=== PATIENT | female | born 1955 | race Hispanic/Latino ===

== ENCOUNTER 2020-12-15 06:16 | Day surgery (SDC) | payer MEDICARE ==
[2020-12-13 11:02] LABS: BASOPHILS % (AUTO) 0.3 % (0.0-5.0); EOSINOPHILS % (AUTO) 1.2 % (0.0-8.0); HEMATOCRIT 38.8 % (36-48); LYMPHOCYTES % (AUTO) 38.2 % (21.0-51.0); MEAN CORPUSCULAR HEMOGLOBIN 25.7 pg (27.0-33.0); MEAN CORPUSCULAR HGB CONC 30.4 g/dL (32.0-36.0); MEAN CORPUSCULAR VOLUME 84.3 fL (79-99); MONOCYTES % (AUTO) 11.4 % (3.0-13.0); NEUTROPHILS % (AUTO) 48.6 % (40.0-77.0); PLATELET COUNT (AUTO) 193 K/uL (130-400); RED CELL DISTRIBUTION WIDTH 14.4 % (11.0-15.5)
[2020-12-13 11:08] LABS: POTASSIUM 4.7 mmol/L (3.5-5.1)
[2020-12-13 13:08] VITALS: BP 144/67
[~2020-12-15] VITALS: Ht 171.4 cm; Wt 76.0 kg
[2020-12-15] VITALS (16 sets, daily range): BP systolic 110–145; BP diastolic 65–89
[~2020-12-15 06:16] MED LIST: ASCO100031 PO; ASPI-1197 PO; CALC-1125 PO; CEFAZOLIN SODIUM 1 GM VIAL IVP SCH; SIMV-46 PO; TIMO1DRO5 OP; VITAMIN D3 PO
[2020-12-15] MEDS ORDERED: LACTATED RINGERS 1000ML 1,000 ML IV ONE (06:42)
[2020-12-15] MEDS ORDERED: ROCURONIUM 10MG/1ML SYR 10 MG/ML ML ONE (07:43)
[2020-12-15] MEDS ORDERED: PROPOFOL 10 MG/ML 20ML VIAL IV ONE (07:43)
[2020-12-15] MEDS ORDERED: MIDAZOLAM HCL 1 MG/ML 2ML VIAL ONE (07:43)
[2020-12-15] MEDS ORDERED: LIDOCAINE HCL MPF 1% 5ML VIAL ONE (07:43)
[2020-12-15] MEDS ORDERED: SUCCINYLCHOLINE CHLORIDE 20 MG/ML 10 ML VIAL ONE (07:44)
[2020-12-15] MEDS ORDERED: FENTANYL CITRATE PF 50 MCG/1 ML 2ML VIAL ONE (07:44)
[2020-12-15] MEDS ORDERED: EPHEDRINE SULFATE 50 MG/ML AMPULE ONE (08:45)
[2020-12-15] MEDS ORDERED: NEOSTIGMINE 5MG/5ML SYR IV ONE (08:54)
[2020-12-15] MEDS ORDERED: GLYCOPYRROLATE 1 MG/5 ML SYRINGE ONE (08:54)
[2020-12-15] MEDS ORDERED: ACET1TAB25 PO (09:08)
[2020-12-15] MEDS ORDERED: CEPH500B PO (09:08)
[2020-12-15] MEDS ORDERED: IBUP-2070 PO (09:08)
== END 2020-12-15 10:50 | disposition home or self-care (01) ==
LOC: DAH 06:16
PROVIDERS: ATTEND Orthopaedic Surgery
DX: M23.321 Other meniscus derangements, posterior horn of medial meniscus, right knee (principal); M94.261 Chondromalacia, right knee; Z20.828 Contact with and (suspected) exposure to other viral communicable diseases; M25.561 Pain in right knee; G89.29 Other chronic pain; E66.9 Obesity, unspecified; Z98.890 Other specified postprocedural states; Z87.891 Personal history of nicotine dependence; Z72.89 Other problems related to lifestyle; Z80.9 Family history of malignant neoplasm, unspecified; Z79.899 Other long term (current) drug therapy; Z79.82 Long term (current) use of aspirin
CPT/HCPCS: 29881; 36415; 80048; 85025; A4215; A4221; A4222; A4223; A4606; A4649 ×2; A4663; A4930 ×2; A5120; A6223; C9803; J0330; J2250; J2704; J2710; J3010; J3490 ×3; J7120 ×2; U0003